=== PATIENT | female | born 1990 | race Hispanic/Latino ===

== ENCOUNTER 2022-04-15 06:17 | Day surgery (SDC) | payer SELFPAY ==
[2022-04-13 14:31] LABS: Absolute Lymphocytes (CBC) 1.9 K/uL (0.7-4.9); Albumin 3.9 g/dL (3.4-5.0); Bilirubin Total 0.4 mg/dL (0.2-1.0); Hematocrit 39.5 % (36.0-45.0); Lymphocytes % 25.5 % (15.3-44.8); MPV 8.6 fL (7.6-11.3); Potassium 3.4 mmol/L (3.5-5.1); Protein, Total 7.5 g/dL (6.4-8.2); RBC Red Blood Cell Count 4.63 M/uL (3.86-4.86)
--- NOTE | 2022-04-14 12:34 | EKG ---
Test Date: 2022-04-13 Test Time: 13:58:39 Supervisor Grower: ELEAZAR MEASUREMENT RESULTS: Intervals: Rate: 83 [place]: 142 QRSD: 106 QT: 382 QTc: 448 [place]: P: 73 [place]: 142 QRS: 90 T: 65 INTERPRETIVE STATEMENTS: Normal sinus rhythm Rightward axis Borderline ECG No previous ECG available for comparison Electronically Signed On 04-14-22 12:31:42 CDT by Sonido Peralta
[2022-04-15 06:47] LABS: Specific Gravity > 1.030 (1.005-1.030)
[2022-04-15] MEDS ORDERED: Ringers Lactate 1,000 ML IV ONE ×2 (06:47→08:53)
[2022-04-15] MEDS ORDERED: CEFOXITIN SODIUM 1 GM/VIAL ONE (06:47)
[2022-04-15 07:20] VITALS: O2SAT 100
[2022-04-15] MEDS ORDERED: FENTANYL CITR 100 MCG/2 ML ONE (07:22)
[2022-04-15] MEDS ORDERED: MIDAZOLAM HCL 2 MG/2 ML INJ ONE (07:22)
[2022-04-15] MEDS ORDERED: LIDOCAINE 2% MPF 5 ML VIAL ONE (07:22)
[2022-04-15] MEDS ORDERED: ROCURONIUM 50 MG/5 ML VIAL IV ONE (07:22)
[2022-04-15] MEDS ORDERED: propofoL 200 MG/20 ML VIAL IV ONE (07:22)
[2022-04-15] MEDS ORDERED: BUPIVACAINE 0.25% PF 10 ML VIAL ONE (07:34)
[2022-04-15] MEDS ORDERED: ONDANSETRON 4 MG/2 ML VIAL ONE (08:28)
[2022-04-15] MEDS ORDERED: KETOROLAC 30 MG/ML INJ ONE (08:28)
[2022-04-15] MEDS ORDERED: dexAMETHasone 10 MG/ML VIAL ONE (08:28)
[2022-04-15] MEDS ORDERED: GLYCOPYRROLATE 0.2 MG/ML SYR ONE (09:02)
--- NOTE | 2022-04-15 09:04 | P.OP ---
Preoperative diagnosis: Cholecystitis with Cholelithiasis Postoperative diagnosis: Cholecystitis with Cholelithiasis Primary procedure: Laparoscopic cholecystectomy Anesthesia: GETA + Local Estimated blood loss: <5cc Specimen: gallbladder Findings: distended gallbladder, multiple stones Complications: None Transferred to: Recovery Room Condition: Good
[2022-04-15] MEDS ORDERED: NEOSTIGMINE 1 MG/ML -10 ML VIAL ONE (09:10)
[2022-04-15] MEDS ORDERED: BUPIVACAINE 0.25% PF 10 ML VIAL IJ ONE (09:22)
[2022-04-15] MEDS: MEPERIDINE HCL 25 MG/ML SYR ONE ×2 (09:35→09:40)
--- NOTE | 2022-04-15 10:07 | OP ---
Date of Procedure: 04/15/2022 Surgeon: Jose Dumont MD, Preoperative Diagnosis: Cholecystitis with cholelithiasis. Postoperative Diagnosis: Cholecystitis with cholelithiasis. Procedure Performed: Laparoscopic cholecystectomy with ICG cholangiography. Anesthesia: General endotracheal plus local with 0.25% Marcaine. Estimated Blood Loss: Less than 5 mL. Specimen: Gallbladder. Findings: Distended gallbladder and multiple stones. Complications: None. Disposition: The patient was transferred to the recovery room in good condition. Procedure In Detail: After informed consent was obtained, the patient was brought to the operating, prepped and draped in the usual fashion after adequate anesthesia was achieved. The supraumbilical a yuki was anesthetized with 0.25% Marcaine and sharply incised. A 5 mm 0-degree optical trocar was yana kaleb under direct vision without evidence of complication. Insufflation was obtained to 15 mmHg at th is time. There was no injury to vital structures upon entry into the abdomen. Additional trocars we re placed in the epigastrium, 1 in the right upper quadrant, both of these similarly anesthetized and sharply incised. A 5 mm trocar was placed under direct visualization without evidence of complicati on. The umbilical trocar site was up sized to 12 mm under direct vision without evidence of complica tion. The patient was then positioned head up right-side up position. Ratcheted grasper was used to grasp the patient's gallbladder and placed toward the patient's right shoulder and was found to be q uite distended with stones. I dissected down the Katy pouch of the gallbladder to dissect and id entify. The critical view of safety was obtained at this point identifying both cystic duct and cyst ic artery. These structures were skeletonized. ICG cholangiography was performed at this point to v erify position. Critical view of safety was obtained at this point after structures were skeletonize d. Double titanium clips were placed on the proximal side and singly on the distal side of both cyst ic duct and cystic artery. These structures were then ligated with Endoshears. The gallbladder was then removed from the hepatic fossa without evidence of complication, placed in EndoCatch bag, remove d through the umbilical trocar, and sent off for pathological examination. The area was then copious ly irrigated after insufflation was re-obtained. No additional hemostatic maneuvers were required. No leakage of bile was appreciated. The area was then copiously irrigated once again and suctioned o ut until completely evacuated. The patient was positioned back in neutral position. The 12 mm troca r site was then closed using a Edwin-Alphonso suture passer with 0 Vicryl in an interrupted fashion. The abdomen was then completely desufflated under direct visualization without evidence of complica tion. All trocars were removed. All skin incisions were copiously irrigated and closed with 4-0 Mon ocryl in a running fashion. Dermabond placed over top. The patient tolerated the procedure well wit hout evidence of complication and transferred to PACU in good condition. All counts were correct at the end of the case. DOREEN/CINDA Voice ID: [id number] Report ID: [id number]
[2022-04-15] MEDS ORDERED: HYDROCODONE/APAP 5/325 MG TAB ONE (10:13)
[2022-04-15 10:42] VITALS: BP 119/68; TEMP 96.4
== END 2022-04-15 10:32 | disposition home or self-care (01) ==
LOC: OR 06:17
PROVIDERS: ATTEND Surgery
PROC: BF13YZZ Fluoroscopy of Gallbladder and Bile Ducts using Other Contrast (ICD-10-PCS; 2022-04-15)
PROC: 0FT44ZZ Resection of Gallbladder, Percutaneous Endoscopic Approach (ICD-10-PCS; principal; 2022-04-15 08:00)
DX: K80.10 Calculus of gallbladder with chronic cholecystitis without obstruction (principal); Z88.1 Allergy status to other antibiotic agents; Z20.822 Contact with and (suspected) exposure to COVID-19
CPT/HCPCS: 36415; 80053; 81025; 85025; 88304; 93005; J0694; J1100; J2175; J2250; J2405; J2704; J2710; J3010; J7120; U0003